=== PATIENT | male | born 1965 | race Caucasian/White ===

== ENCOUNTER → 2023-02-12 16:52 | Outpatient (CLI) | payer OTHER, SELFPAY ==
--- NOTE | 2023-02-12 | DI.MRI.S_ITS ---
PROCEDURE: MR LUMBAR SPINE WO CON INDICATIONS: low back and shoulder pain TECHNIQUE: Noncontrast sagittal T1 spin echo and T2 fast echo, sagittal STIR, and T2 fast spin echo through the lumbar spine. In cases with scoliosis, additional coronal T2 fast spin echo may be performed. COMPARISON: [facility] Outside Film, MR, MR LUMBAR SPINE WITHOUT CONTRAST, 04/09/2022, 15:38 (images only, no report. FINDINGS: Image quality: Diagnostic Alignment and Curvature: There is normal bony alignment. Bone Marrow: Marrow is of normal overall signal. No acute vertebral body compression fractures. Spinal Cord: Conus medullaris terminates at the L1 level. Visualized cord demonstrates normal signal and size. Paraspinous Soft Tissues: No paravertebral masses. Incidental note is made of a retroaortic left renal vein. T12-L1: Normal appearance. L1-L2: Normal appearance. L2-L3: Mild loss of disc height is seen. Loss of disc signal is seen. Mild to moderate disc bulge is seen, with a central disc protrusion. Mild facet joint hypertrophy is seen. Mild bilateral neural foraminal narrowing is seen. Mild to moderate central canal narrowing can be seen. The neural foraminal narrowing is worse than on the prior. L3-L4: Mild loss of disc height is seen. Loss of disc signal is seen. Moderate generalized disc bulge is seen. There is a superimposed central disc protrusion. Mild facet joint hypertrophy is seen. Minimal bilateral neural foraminal narrowing can be seen. Mild to moderate central canal narrowing is seen. When comparison is made with the prior images, these findings are similar. L4-L5: The disc height and disk signal are relatively well-preserved. Moderate generalized disc bulge is seen. There is a superimposed central disc protrusion. At least moderate facet hypertrophy is seen at this level. Moderate bilateral neural foraminal narrowing is seen, left worse than right. At least moderate central canal narrowing is seen, as on series 5, image 27. The neural foraminal narrowing on the right has progressed compared to 2021 L5-S1: The disc height and disk signal are relatively well-preserved. Mild to moderate disc bulge is seen, with a mild central disc extrusion, with minimal superior migration of the disc material. Mild to moderate facet hypertrophy is seen. Mild facet joint hypertrophy is seen. Moderate bilateral neural foraminal narrowing is seen. Moderate central canal narrowing is seen. When comparison is made with the prior images, these findings are similar. 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 Mild progression of degenerative change can be seen compared to 2021. Dictated by: Craig Butler M.D. on 02/13/2023 at 9:39 Approved by: Craig Butler M.D. on 02/13/2023 at 9:44
--- NOTE | 2023-02-12 | DI.MRI.S_ITS ---
PROCEDURE: MR SHOULDER LT WO CON INDICATIONS: low back and shoulder pain TECHNIQUE: Noncontrast oblique coronal T2 fast spin echo with fat saturation, oblique sagittal T1 spin echo and T2 fast spin echo with fat saturation, axial T1 spin echo and T2 fast spin echo with fat saturation through the shoulder. COMPARISON: Non. FINDINGS: Image quality: Excellent. Rotator cuff: There is full-thickness tear of the distal supraspinatus tendon. Mild tendon retraction is present. No supraspinatus muscle atrophy. There is moderate infraspinatus and subscapularis tendinosis without full-thickness tendon tear. Bones and bursae: No bone marrow contusions or fractures. Moderate acromioclavicular and glenoid humeral joint degeneration. The acromion demonstrates conventional anatomy, without an os acromiale. There is moderate glenohumeral joint effusion. Capsule and soft tissues: Mild degenerative labral fraying. The long head of the biceps tendon demonstrates normal location and morphology. The rotator interval appears normal, without fibrosis. The coracohumeral ligament is normal in thickness. IMPRESSION: 1. Full-thickness supraspinatus tear. 2. Moderate glenohumeral joint effusion. 3. Moderate acromioclavicular and glenohumeral joint degeneration. Dictated by: Evelin Brower M.D. on 02/13/2023 at 7:52 Approved by: Evelin Brower M.D. on 02/13/2023 at 12:00
== END ==
PROVIDERS: Referring Provider Student in an Organized Health Care Education/Training Program; Visit Provider Student in an Organized Health Care Education/Training Program
DX: M75.102 Unspecified rotator cuff tear or rupture of left shoulder, not specified as traumatic (principal); M25.412 Effusion, left shoulder
CPT/HCPCS: 72148; 73221